=== PATIENT | female | born 1990 | race Caucasian/White ===

== ENCOUNTER → 2020-08-19 | Outpatient (CLI) | payer OTHER | LOC: LAB 12:32 | DX: Z32.00 Encounter for pregnancy test, result unknown (principal) | CPT/HCPCS: 36415; 84702 ==

== ENCOUNTER 2021-03-09 14:52 | Outpatient (CLI) | payer OTHER | END 2021-03-09 16:45 | disposition home or self-care (01) | LOC: GENOP 14:52 | DX: O36.8130 Decreased fetal movements, third trimester, not applicable or unspecified (principal); O98.513 Other viral diseases complicating pregnancy, third trimester; U07.1 COVID-19; Z3A.32 32 weeks gestation of pregnancy | CPT/HCPCS: 59025 ==

== ENCOUNTER 2021-03-11 11:42 | Emergency (ER) | payer OTHER ==
[2021-03-11 13:10] LABS: HEMOGLOBIN 10.6 gm/dl (12.3-15.3); RED BLOOD COUNT 3.46 M/UL (4.00-5.10)
[2021-03-11 13:50] LABS: BUN/CREATININE RATIO 5 (0-10)
[2021-03-11] MEDS ORDERED: OMNICEF 300 MG300 MG PO (15:18)
== END 2021-03-11 18:25 | disposition home or self-care (01) ==
LOC: ER1 11:42
PROVIDERS: Emergency Medicine
DX: U07.1 COVID-19 (principal); O98.513 Other viral diseases complicating pregnancy, third trimester; Z23 Encounter for immunization; O23.43 Unspecified infection of urinary tract in pregnancy, third trimester; O99.283 Endocrine, nutritional and metabolic diseases complicating pregnancy, third trimester; E87.6 Hypokalemia; Z3A.32 32 weeks gestation of pregnancy
CPT/HCPCS: 80053; 81001; 82550; 82553; 83605; 83874; 84484; 85025; 87040; 87077; 87086; 87186; 93005; 96374; 99283; J0696; M0245

== ENCOUNTER 2021-04-18 17:08 | Inpatient (IN) | payer OTHER ==
[~2021-04-18] VITALS: Ht 160 cm; Wt 103.4 kg
[~2021-04-18 17:08] MED LIST: OMNICEF 300 MG300 MG PO
[2021-04-18 19:18] LABS: HEMOGLOBIN 11.8 gm/dl (12.3-15.3); RED BLOOD COUNT 3.84 M/UL (4.00-5.10)
[2021-04-18] MEDS ORDERED: PRENATAL 19 CH1 EAC1 PO (22:37)
[2021-04-18] MEDS ORDERED: FERROUS SULFAT325 MG PO (22:40)
[2021-04-18] MEDS ORDERED: ZYRTEC10 MG PO (22:42)
[2021-04-20 07:10] LABS: HEMOGLOBIN 10.2 gm/dl (12.3-15.3)
== END 2021-04-21 12:30 | disposition home or self-care (01) | DRG 807 ==
LOC: GENOP 17:08 → OB 17:33
PROVIDERS: Obstetrics & Gynecology; ADMIT Obstetrics & Gynecology
PROC: 10E0XZZ Delivery of Products of Conception, External Approach (ICD-10-PCS; principal; 2021-04-19)
PROC: 10907ZC Drainage of Amniotic Fluid, Therapeutic from Products of Conception, Via Natural or Artificial Opening (ICD-10-PCS; 2021-04-19)
PROC: 3E033VJ Introduction of Other Hormone into Peripheral Vein, Percutaneous Approach (ICD-10-PCS; 2021-04-19)
PROC: 4A1H7CZ Monitoring of Products of Conception, Cardiac Rate, Via Natural or Artificial Opening (ICD-10-PCS; 2021-04-19)
PROC: 10H073Z Insertion of Monitoring Electrode into Products of Conception, Via Natural or Artificial Opening (ICD-10-PCS; 2021-04-19)
PROC: 10H07YZ Insertion of Other Device into Products of Conception, Via Natural or Artificial Opening (ICD-10-PCS; 2021-04-19)
PROC: 0HQ9XZZ Repair Perineum Skin, External Approach (ICD-10-PCS; 2021-04-19)
PROC: 3E0234Z Introduction of Serum, Toxoid and Vaccine into Muscle, Percutaneous Approach (ICD-10-PCS; 2021-04-19)
DX: O13.4 Gestational [pregnancy-induced] hypertension without significant proteinuria, complicating childbirth (principal); Z37.0 Single live birth; O99.284 Endocrine, nutritional and metabolic diseases complicating childbirth; O99.214 Obesity complicating childbirth; E66.9 Obesity, unspecified; O02.9 Abnormal product of conception, unspecified; E28.2 Polycystic ovarian syndrome; Z20.822 Contact with and (suspected) exposure to COVID-19; O70.0 First degree perineal laceration during delivery; Z98.890 Other specified postprocedural states; Z3A.38 38 weeks gestation of pregnancy; Z23 Encounter for immunization; Z88.8 Allergy status to other drugs, medicaments and biological substances
CPT/HCPCS: 36415; 81001; 82800; 85014; 85018; 85025; 90471; 90715; J0595; J2405; J2590; J3010; J7120